=== PATIENT | female | born 1935 | race Caucasian/White ===

== ENCOUNTER → 2017-01-18 | Outpatient (CLI) | payer MEDICARE ==
[~2017-01-18] MED LIST: NAPROSYN 500MG500 MG PO; SKELAXIN 800MG800 MG PO
[2017-01-18 15:05] LABS: HEMOGLOBIN 14.1 g/dL (12.2-16.2); LYMPH # 1.4 K/mm3 (0.7-4.5); LYMPH % 22.9 % (10-50.0)
[2017-01-18 15:14] LABS: URINE BILIRUBIN - DIPSTICK NEGATIVE (NEG); URINE BLOOD NEGATIVE (NEG)
[2017-01-18 15:37] LABS: URINE SQUAMOUS CELLS OCC #/hpf (0-5)
--- NOTE | 2017-01-18 15:44 | RADIOLOGY REPORT PS360 ---
CHEST(2 VIEWS-NOT PORTABLE) HISTORY: Dyspnea on exertion [place] ORDERING PHYSICIAN: Lilly Medellin APRN PATIENT AGE: 81 years COMPARISON: None available FINDINGS: Unremarkable cardiovascular structures. The lungs are clear of acute infiltrate. There is a calcified granuloma in the right middle lobe medially. No obvious effusions. There are old bilateral rib fractures. IMPRESSION: Old granulomatous disease. No acute finding. Old bilateral rib fractures
[2017-01-18 16:26] LABS: BUN 12 mg/dL (7-18)
[2017-01-18 16:27] LABS: GFR (ESTIMATED) 80 ML/MIN (59-)
== END ==
LOC: LAB 14:53
PROVIDERS: Nurse Practitioner Family
DX: R53.1 Weakness (principal); R06.09 Other forms of dyspnea; E03.9 Hypothyroidism, unspecified

== ENCOUNTER → 2017-02-09 | Outpatient (CLI) | payer MEDICARE ==
--- NOTE | 2017-02-09 15:01 | RADIOLOGY REPORT PS360 ---
CT HEAD W/O CONTRAST HISTORY: AMAUROSIS FAGUX OF RT EYE, HEADACHE AROUND EYE ORDERING PHYSICIAN: Vincenzo Matute MD PATIENT AGE: 81 years COMPARISON: None TECHNIQUE: Axial images obtained without contrast. Brain and bone windows reviewed. FINDINGS: No midline shift, mass effect, intracranial hemorrhage, hydrocephalus, or extra-axial fluid collection is evident. The calvarium has an unremarkable appearance. No mastoid effusion. The visualized paranasal sinuses are unremarkable. IMPRESSION: Negative CT head without contrast. No acute finding.
--- NOTE | 2017-02-12 21:31 | RADIOLOGY REPORT PS360 ---
PROCEDURE: 2-D M-mode and color Doppler study INDICATIONS FOR THE TEST: Chest pain COPD Heart Murmur Tobacco Smoking Palpitations Fatigue Syncope Edema Hypertension Diabetes Mellitus Rheumatic Fever SOB DOEXObesity Hyperlipidemia Family History HD Additional History H/A, AMAUROSIS FUGAX PATIENT INFORMATION HEIGHT: 66 WEIGHT:141 GENDER: Female B/P:110/70 2-D/M-MODE INTERPRETATION: 2-D MEASUREMENTS OBSERVED VALUES IN CMS Right Ventricular Dimension (RVDd) 2.0 Interventricular Septum (Thickness)(IVsd) 1.0 Left Ventricular Internal Dimensions(LVIDd) 4.5 Left Ventricular Posterior Wall (Thickness)(LVPWd) 1.4 Aortic Root 2.9 Aortic Cusp Separation 1.3 Left Atrial Dimensions (LAD) 3.0 2D 1. Left atrium is mildly enlarged, left ventricle is normal size, there is preserved left ventricular systolic function, visually estimated ejection fraction of 55% with no obvious regional wall motion abnormality. 2. The right atrium and right ventricle are mildly enlarged with normal contractility. 3. The aortic valve is thickened and calcified, leaflet continue to display good mobility. 4. The mitral and tricuspid valve leaflets are minimally thickened. 5. No significant pericardial effusion noted 6. The pulmonic valve is very poorly visualized. DOPPLER INTERROGATION: Doppler interrogation of the aortic, mitral and tricuspid valvular presence of mild mitral and tricuspid regurgitation, tricuspid regurgitant jet velocity is insufficient for calculation of the right ventricular systolic pressure, grade 1 diastolic dysfunction seen with tissue Doppler evidence of raised left atrial pressure. Agitated saline contrast study identifies intermittent right to left shunt likely secondary to patent foramen ovale. CONCLUSION: 1. Mild biatrial enlargement, normal left ventricular size, mild concentric left ventricular hypertrophy, visually estimated ejection fraction 55% with no obvious regional wall motion abnormality, grade 1 diastolic dysfunction seen with tissue Doppler evidence of raised left atrial pressure. 2. Mildly enlarged right ventricle with normal contractility. 3. Agitated saline contrast study identifies intermittent right to left shunt likely secondary to patent foramen ovale. 4. No significant pericardial effusion noted.
== END ==
LOC: RT 13:31
DX: R51 Headache (principal); R06.09 Other forms of dyspnea; G45.3 Amaurosis fugax

== ENCOUNTER → 2017-03-14 | Outpatient (CLI) | payer MEDICARE ==
--- NOTE | 2017-03-14 08:47 | CARDIOVASCULAR REPORT ---
"Cerebrovascular Exam Indications: 780.4 Vertigo. IMPRESSIONS 1. The bilateral vertebral arteries are patent with normal antegrade flow. 2. Study suggests 70-99%(upper end of scale)stenosis involving the right internal carotid artery. 3. Study suggests 50-69% stenosis involving the left internal carotid artery. 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 Risk factors: Hypertension. Hyperlipidemia. Carotid duplex study. Complete study and Doppler flow study including spectral analysis, color and smith scale imaging. Height: Height: 167.6cm. Height: 66in. Weight: Weight: 64.4kg. Weight: 141.7lb. Body mass index: BMI: 22.9kg/m^2. Body surface area: BSA: 1.74m^2. Location: Vascular laboratory. Patient status: Outpatient. Tables: Arterial flow: + +--------+--------+ |Location |V sys |V ed | + +--------+--------+ |Right CCA - proximal|94.3cm/s|15.7cm/s| + +--------+--------+ |Right CCA - distal |63.5cm/s|15.1cm/s| + +--------+--------+ |Right ECA |83cm/s |--------| + +--------+--------+ |Right ICA - proximal|454cm/s |111cm/s | + +--------+--------+ |Right ICA - mid |204cm/s |41.9cm/s| + +--------+--------+ |Right ICA - distal |57.3cm/s|21cm/s | + +--------+--------+ |Right vertebral |51cm/s |--------| + +--------+--------+ |Left CCA - proximal |85.2cm/s|23.7cm/s| + +--------+--------+ |Left CCA - distal |90.8cm/s|24.4cm/s| + +--------+--------+ |Left ECA |89.4cm/s|--------| + +--------+--------+ |Left ICA - proximal |101cm/s |33.5cm/s| + +--------+--------+ |Left ICA - mid |155cm/s |47.1cm/s| + +--------+--------+ |Left ICA - distal |123cm/s |48.1cm/s| + +--------+--------+ |Left vertebral |50.3cm/s|--------| + +--------+--------+ Velocity ratios: + + + + + + | |Right, V sys|Right, V ed|Left, V sys|Left, V ed| + + + + + + |Max ICA/dist CCA|7.15 |7.35 |1.71 |1.97 | + + + + + + (Report amended ) Electronically signed by: Genaro Amado [id number]"
== END ==
LOC: RT 08:00
DX: G45.3 Amaurosis fugax (principal)